=== PATIENT | male | born 1960 | race Caucasian/White ===

== ENCOUNTER 2016-07-31 16:07 | Inpatient (IN) | payer OTHER, BC ==
[~2016-07-31] VITALS: Ht 185.4 cm; Wt 122.1 kg
[~2016-07-31 16:07] MED LIST: ALTOPREV20 MG PO; AMIODARONE HCL200 MG PO; ASACOL400 MG PO; ASPIR-LOW81 MG PO; ASPIRIN325 MG PO; ATORVASTATIN CA40 MG PO; AZATHIOPRINE50 MG PO; Advair HFA 115/21 IH; BYSTOLIC10 MG PO; CLOPIDOGREL75 MG PO; Ecotrin PO; GEMFIBROZIL600 MG PO; GLUCOVANCE 51 TABLET PO; INSULIN PUMP SCCONT; KEFLEX500 MG PO; LANTUS 10100 UNITS/ SC; LANTUS 3 M100 UNITS/ SC; LIALDA1.2 GM PO; LOVASTATIN20 MG PO; LYRICA150 MG PO; Lopid PO; METAGLIP 5/51 TABLET PO; METFORMIN HCL500 MG PO; METOPROLOL SUCC25 MG PO; Mevacor PO; PROBIOTIC1 EAC1 PO; SPIRIVA1 INHALATI IH; TIMOLOL MALEATE5 ML BOTH EYES; TIMOPTIC-0100 DROP/5 BOTH EYES; TOPROL XL50 MG PO; Zithromax PO; predniSONE PO
[2016-07-31 17:10] LABS: HEMATOCRIT 38.2 % (38.0-50.0); MCH 32.7 PG (29.0-34.0); MCHC 35.3 G/DL (30.0-36.0); MCV 92.5 FL (86-99); MEAN PLAT.VOLUME 9.4 uM^3 (9.0-12.4); PLATELET COUNT 148 K/uL (156-360); RBC DIS.WIDTH-CV 13.4 % (11.8-14.6); RBC DIS.WIDTH-SD 45.5 % (39-53); RED BLOOD COUNT 4.13 M/uL (4.00-5.50); WHITE BLOOD COUNT 8.5 K/uL (4.1-10.2)
[2016-07-31 17:20] LABS: CHLORIDE 96 mEq/L (99-109); POTASSIUM 4.1 mEq/L (3.7-5.4); SODIUM 129 mEq/L (136-147)
[2016-07-31 17:22] LABS: GLUCOSE 287 mg/dL (70-99)
[2016-07-31 17:24] LABS: ANION GAP 16 MEQ/L (2-14); INTER. NORMALIZED RATIO 1.2; PROTHROMBIN TIME 11.9 (9.2-11.2); PTT 31.5 (25-32)
[2016-07-31 17:26] LABS: GFR ESTIMATE (CALCULATED) 48 mL/min/
[2016-07-31 17:27] LABS: UREA NITROGEN (BUN) 21 mg/dL (9-23)
[2016-07-31] MEDS ORDERED: ATORVASTATIN CA40 MG PO (18:19)
[2016-07-31] MEDS ORDERED: PLAVIX75 MG PO (18:19)
[2016-07-31] MEDS ORDERED: METOPROLOL TART50 MG PO (18:20)
[2016-07-31] MEDS ORDERED: AZATHIOPRINE50 MG PO (18:21)
[2016-07-31] MEDS ORDERED: MELOXICAM15 MG PO (18:22)
[2016-07-31] MEDS ORDERED: TYLENOL ARTHRI650 MG PO (18:22)
[2016-07-31] MEDS ORDERED: CYMBALTA60 MG PO (18:22)
[2016-07-31 21:00] VITALS: BP 103/58
[2016-07-31 21:12] VITALS: BP 103/58
[2016-07-31 23:28] VITALS: BP 116/56
[2016-08-01 04:09] VITALS: BP 118/56
[2016-08-01 06:57] LABS: POINT-OF-CARE METER ID UU14149397
[2016-08-01 08:03] VITALS: BP 124/68
[2016-08-01 11:35] VITALS: BP 126/58
[2016-08-01 12:36] LABS: ANION GAP 10 MEQ/L (2-14); CHLORIDE 106 MEQ/L (99-109); GLUCOSE 208 mg/dL (70-99); POTASSIUM 4.3 MEQ/L (3.7-5.4); SAMPLE HEMOLYSIS CHECK 0; SAMPLE ICTERIC CHECK 0; SAMPLE LIPEMIA CHECK 0; UREA NITROGEN (BUN) 16 mg/dL (9-23)
[2016-08-01 12:44] LABS: GFR ESTIMATE (CALCULATED) > 59 mL/min/; SODIUM 138 MEQ/L (136-147)
[2016-08-01 15:36] VITALS: BP 122/60
[2016-08-01 20:15] VITALS: BP 151/80
[2016-08-01 23:33] VITALS: BP 113/56
[2016-08-02 03:56] VITALS: BP 127/60
[2016-08-02 06:59] LABS: POINT-OF-CARE METER ID UU14188577
[2016-08-02 08:15] VITALS: BP 112/54
[2016-08-02 09:03] LABS: GLUCOSE 142 mg/dL (70-99)
[2016-08-02 11:31] VITALS: BP 128/60
[2016-08-02 11:36] LABS: POINT-OF-CARE METER ID UU14149397
[2016-08-02 14:58] LABS: POINT-OF-CARE METER ID UU13113675
[2016-08-02 15:55] LABS: POINT-OF-CARE METER ID UU13113675
[2016-08-02 16:38] VITALS: BP 124/68
[2016-08-02 18:38] LABS: POINT-OF-CARE METER ID UU14149397
[2016-08-02 19:55] VITALS: BP 140/67
[2016-08-02 22:24] LABS: POINT-OF-CARE METER ID UU14149397
[2016-08-02 23:55] VITALS: BP 130/63
[2016-08-03 06:35] LABS: HEMATOCRIT 30.9 % (38.0-50.0); MCV 95.1 FL (86-99)
[2016-08-03 06:38] LABS: ANION GAP 10 MEQ/L (2-14); CHLORIDE 102 MEQ/L (99-109); GFR ESTIMATE (CALCULATED) > 59 mL/min/; SAMPLE HEMOLYSIS CHECK 0; SAMPLE ICTERIC CHECK 0; SAMPLE LIPEMIA CHECK 0; SODIUM 135 MEQ/L (136-147); UREA NITROGEN (BUN) 17 mg/dL (9-23)
[2016-08-03 06:42] LABS: GLUCOSE 62 mg/dL (70-99); POTASSIUM 3.4 MEQ/L (3.7-5.4)
[2016-08-03 08:00] VITALS: BP 132/62
[2016-08-03 11:54] LABS: POINT-OF-CARE METER ID UU14188577
[2016-08-03 12:40] LABS: POINT-OF-CARE METER ID UU14188577
[2016-08-03 16:00] VITALS: BP 133/63
[2016-08-03 16:30] LABS: POINT-OF-CARE METER ID UU14188577
[2016-08-03 21:51] LABS: POINT-OF-CARE METER ID UU14149397
[2016-08-03 23:56] VITALS: BP 170/84
[2016-08-04 06:36] LABS: POINT-OF-CARE METER ID UU14188577
[2016-08-04 06:49] LABS: HEMATOCRIT 29.5 % (38.0-50.0); MCH 32.6 PG (29.0-34.0); MCHC 34.2 G/DL (30.0-36.0); MCV 95.2 FL (86-99); MEAN PLAT.VOLUME 9.4 uM^3 (9.0-12.4); PLATELET COUNT 180 K/uL (156-360); RBC DIS.WIDTH-SD 48.2 % (39-53); WHITE BLOOD COUNT 7.2 K/uL (4.1-10.2)
[2016-08-04 07:16] LABS: ANION GAP 9 MEQ/L (2-14); CHLORIDE 103 MEQ/L (99-109); GFR ESTIMATE (CALCULATED) > 59 mL/min/; SAMPLE HEMOLYSIS CHECK 0; SAMPLE ICTERIC CHECK 0; SAMPLE LIPEMIA CHECK 0; SODIUM 138 MEQ/L (136-147); UREA NITROGEN (BUN) 13 mg/dL (9-23)
[2016-08-04 07:17] LABS: GLUCOSE 188 mg/dL (70-99)
[2016-08-04 07:18] LABS: POTASSIUM 4.2 MEQ/L (3.7-5.4)
[2016-08-04 08:18] VITALS: BP 150/66
[2016-08-04 08:19] LABS: ERTH.SED.RATE 92 MM/HR (0-20)
[2016-08-04 11:44] LABS: POINT-OF-CARE METER ID UU14188577
[2016-08-04 16:02] VITALS: BP 147/83
[2016-08-04 16:21] LABS: POINT-OF-CARE METER ID UU14149397
[2016-08-05 06:49] LABS: POINT-OF-CARE METER ID UU14188577
[2016-08-05 08:23] VITALS: BP 126/72
[2016-08-05] MEDS ORDERED: BENADRYL25 MG PO (08:44)
[2016-08-05] MEDS ORDERED: OXYCODONE HCL5 MG PO (08:51)
[2016-08-05] MEDS ORDERED: LOVENOX40 MG/0.4 SC (10:06)
[2016-08-05 12:02] LABS: POINT-OF-CARE METER ID UU14188577
[2016-08-05 16:20] VITALS: BP 173/82
[2016-08-05 23:45] VITALS: BP 141/65
[2016-08-06 06:50] LABS: POINT-OF-CARE METER ID UU14149397
[2016-08-06 08:00] VITALS: BP 112/60
[2016-08-06] MEDS ORDERED: AUGMENTIN875 MG PO (08:55)
[2016-08-06 16:43] VITALS: BP 149/83
[2016-08-06 16:47] LABS: POINT-OF-CARE METER ID UU14188577
[2016-08-06 23:36] VITALS: BP 120/58
[2016-08-07 11:51] VITALS: BP 132/61
[2016-08-07] MEDS ORDERED: XARELTO15 MG PO (13:04)
== END 2016-08-07 15:15 | disposition home health service (06) | DRG 463 ==
LOC: EME 16:07 → EDOF 18:00 → 3EAST 18:00
PROVIDERS: Emergency Medicine; Internal Medicine; Nurse Practitioner Family; Orthopaedic Surgery; Orthopaedic Surgery Sports Medicine
PROC: 0M9N0ZZ Drainage of Right Knee Bursa and Ligament, Open Approach (ICD-10-PCS; 2016-07-31)
PROC: 0JBN0ZZ Excision of Right Lower Leg Subcutaneous Tissue and Fascia, Open Approach (ICD-10-PCS; principal; 2016-08-02)
PROC: 0S9C0ZZ Drainage of Right Knee Joint, Open Approach (ICD-10-PCS; 2016-08-04)
DX: M71.161 Other infective bursitis, right knee (principal); A41.9 Sepsis, unspecified organism; R65.20 Severe sepsis without septic shock; L03.115 Cellulitis of right lower limb; E87.1 Hypo-osmolality and hyponatremia; K51.90 Ulcerative colitis, unspecified, without complications; I82.411 Acute embolism and thrombosis of right femoral vein; E87.6 Hypokalemia; E78.2 Mixed hyperlipidemia; B95.4 Other streptococcus as the cause of diseases classified elsewhere; D69.6 Thrombocytopenia, unspecified; E11.65 Type 2 diabetes mellitus with hyperglycemia; M71.21 Synovial cyst of popliteal space [Baker], right knee; I25.10 Atherosclerotic heart disease of native coronary artery without angina pectoris; E11.649 Type 2 diabetes mellitus with hypoglycemia without coma; I10 Essential (primary) hypertension; E66.9 Obesity, unspecified; Z96.41 Presence of insulin pump (external) (internal); E78.00 Pure hypercholesterolemia, unspecified; Z95.5 Presence of coronary angioplasty implant and graft; Z68.35 Body mass index [BMI] 35.0-35.9, adult; Z79.4 Long term (current) use of insulin; Z79.84 Long term (current) use of oral hypoglycemic drugs; Z98.62 Peripheral vascular angioplasty status; I25.2 Old myocardial infarction; Z87.891 Personal history of nicotine dependence; Z82.49 Family history of ischemic heart disease and other diseases of the circulatory system; Z83.3 Family history of diabetes mellitus; Z86.718 Personal history of other venous thrombosis and embolism
CPT/HCPCS: 70140; 73720; 80048; 80202; 82948; 83605; 84999; 85014; 85018; 85027; 85610; 85651; 85730; 86140; 87040; 87070; 87075; 87077; 87102; 87205; 93005; 93971; 94760; 94799; 99281; 99285; J0295; J0690; J0696; J1170; J1650; J1815; J1885; J2270; J2405; J3010; J3370; J7030; J7050; J7500

== ENCOUNTER 2016-09-12 12:31 | Inpatient (IN) | payer OTHER, BC ==
[~2016-09-12] VITALS: Ht 185.4 cm; Wt 114.3 kg
[~2016-09-12 12:31] MED LIST changes: +AUGMENTIN875 MG PO; +BENADRYL25 MG PO; +CYMBALTA60 MG PO; +LOVENOX40 MG/0.4 SC; +MELOXICAM15 MG PO; +METOPROLOL TART50 MG PO; +OXYCODONE HCL5 MG PO; +PLAVIX75 MG PO; +TYLENOL ARTHRI650 MG PO; +XARELTO15 MG PO
[2016-09-12 14:09] LABS: EOSINOPHIL (%) 0 % (0-5); HEMATOCRIT 33.7 % (38.0-50.0); IMMATURE GRANULOCYTE (%) 0.4 % (0.0-0.7); INSTRUMENT ABS NEUTROPHIL CT 6.1 K/uL; LYMPHOCYTE COUNT 0.5 K/uL (1.0-2.8); MCH 33.7 PG (29.0-34.0); MCHC 34.4 G/DL (30.0-36.0); MEAN PLAT.VOLUME 9.2 uM^3 (9.0-12.4); MONOCYTE (%) 4.6 % (3-12); MONOCYTE COUNT 0.3 K/uL (0-0.8); NEUTROPHIL (%) 88.2 % (45-76); NEUTROPHIL COUNT 6.1 K/uL (1.8-6.4); RBC DIS.WIDTH-CV 14.9 % (11.8-14.6); RBC DIS.WIDTH-SD 53.5 % (39-53); RED BLOOD COUNT 3.44 M/uL (4.00-5.50)
[2016-09-12 14:12] LABS: PLATELET COUNT 133 K/uL (156-360); WHITE BLOOD COUNT 6.9 K/uL (4.1-10.2)
[2016-09-12 14:20] LABS: CHLORIDE 101 mEq/L (99-109); POTASSIUM 4.2 mEq/L (3.7-5.4); SODIUM 133 mEq/L (136-147)
[2016-09-12 14:22] LABS: GLUCOSE 271 mg/dL (70-99)
[2016-09-12 14:23] LABS: ANION GAP 10 MEQ/L (2-14)
[2016-09-12 14:26] LABS: GFR ESTIMATE (CALCULATED) 51 mL/min/
[2016-09-12 14:27] LABS: UREA NITROGEN (BUN) 23 mg/dL (9-23)
[2016-09-12] MEDS ORDERED: XARELTO20 MG PO (17:08)
[2016-09-12] MEDS ORDERED: MECLIZINE HCL25 MG PO (17:11)
[2016-09-12] MEDS ORDERED: FISH OIL300 MG PO ×2 (17:12)
[2016-09-12 20:35] VITALS: BP 144/64
[2016-09-12 21:56] LABS: POINT-OF-CARE METER ID UU14162508
[2016-09-13 00:31] VITALS: BP 137/65
[2016-09-13 04:24] VITALS: BP 129/67
[2016-09-13 06:38] LABS: HEMATOCRIT 31.1 % (38.0-50.0); MCH 33.1 PG (29.0-34.0); MCHC 33.8 G/DL (30.0-36.0); MCV 98.1 FL (86-99); MEAN PLAT.VOLUME 9.7 uM^3 (9.0-12.4); PLATELET COUNT 119 K/uL (156-360); RBC DIS.WIDTH-CV 14.9 % (11.8-14.6); RBC DIS.WIDTH-SD 53.3 % (39-53); RED BLOOD COUNT 3.17 M/uL (4.00-5.50); WHITE BLOOD COUNT 4.9 K/uL (4.1-10.2)
[2016-09-13 07:00] VITALS: BP 111/59
[2016-09-13 07:00] LABS: ALKALINE PHOSPHATASE 66 IU/L (3-129); ANION GAP 8 MEQ/L (2-14); CHLORIDE 102 MEQ/L (99-109); GFR ESTIMATE (CALCULATED) > 59 mL/min/; GLUCOSE 226 mg/dL (70-99); POTASSIUM 3.9 MEQ/L (3.7-5.4); SAMPLE HEMOLYSIS CHECK 0; SAMPLE ICTERIC CHECK 0; SAMPLE LIPEMIA CHECK 0; SODIUM 133 MEQ/L (136-147); TOTAL BILIRUBIN 1.2 MG/DL (0.0-1.0); UREA NITROGEN (BUN) 18 mg/dL (9-23)
[2016-09-13 07:07] LABS: POINT-OF-CARE METER ID UU14162508
[2016-09-13 11:56] VITALS: BP 108/58
[2016-09-13 15:23] VITALS: BP 117/67
[2016-09-13 16:54] LABS: POINT-OF-CARE METER ID UU14162508
[2016-09-13 21:29] LABS: POINT-OF-CARE METER ID UU14162508
[2016-09-13 23:33] VITALS: BP 117/60
[2016-09-14 06:45] LABS: POINT-OF-CARE METER ID UU14162508
[2016-09-14 06:54] LABS: HEMATOCRIT 31.4 % (38.0-50.0); MCH 34.2 PG (29.0-34.0); MCHC 34.7 G/DL (30.0-36.0); MCV 98.4 FL (86-99); MEAN PLAT.VOLUME 9.6 uM^3 (9.0-12.4); PLATELET COUNT 129 K/uL (156-360); RBC DIS.WIDTH-CV 14.7 % (11.8-14.6); RBC DIS.WIDTH-SD 53.4 % (39-53); RED BLOOD COUNT 3.19 M/uL (4.00-5.50); WHITE BLOOD COUNT 3.9 K/uL (4.1-10.2)
[2016-09-14 07:15] VITALS: BP 114/66
[2016-09-14 07:34] LABS: ANION GAP 5 MEQ/L (2-14); CHLORIDE 101 MEQ/L (99-109); GFR ESTIMATE (CALCULATED) > 59 mL/min/; GLUCOSE 181 mg/dL (70-99); POTASSIUM 4.5 MEQ/L (3.7-5.4); SAMPLE HEMOLYSIS CHECK 0; SAMPLE ICTERIC CHECK 0; SAMPLE LIPEMIA CHECK 0; SODIUM 131 MEQ/L (136-147); UREA NITROGEN (BUN) 19 mg/dL (9-23)
[2016-09-14 15:35] VITALS: BP 120/66
[2016-09-14 19:45] VITALS: BP 131/67
[2016-09-14 21:56] LABS: POINT-OF-CARE METER ID UU14162508
[2016-09-14 23:43] VITALS: BP 131/75
[2016-09-15 03:31] VITALS: BP 144/63
[2016-09-15 06:49] LABS: HEMATOCRIT 35.5 % (38.0-50.0); MCH 33.3 PG (29.0-34.0); MCHC 34.6 G/DL (30.0-36.0); MCV 96.2 FL (86-99); MEAN PLAT.VOLUME 9.7 uM^3 (9.0-12.4); RBC DIS.WIDTH-CV 14.2 % (11.8-14.6); RBC DIS.WIDTH-SD 50.6 % (39-53); RED BLOOD COUNT 3.69 M/uL (4.00-5.50); WHITE BLOOD COUNT 4.8 K/uL (4.1-10.2)
[2016-09-15 06:50] LABS: PLATELET COUNT 172 K/uL (156-360)
[2016-09-15 07:03] LABS: ANION GAP 8 MEQ/L (2-14); CHLORIDE 102 MEQ/L (99-109); GFR ESTIMATE (CALCULATED) > 59 mL/min/; GLUCOSE 212 mg/dL (70-99); POTASSIUM 4.4 MEQ/L (3.7-5.4); SAMPLE HEMOLYSIS CHECK 0; SAMPLE ICTERIC CHECK 0; SAMPLE LIPEMIA CHECK 0; SODIUM 136 MEQ/L (136-147); UREA NITROGEN (BUN) 18 mg/dL (9-23)
[2016-09-15 08:00] VITALS: BP 140/73
[2016-09-15 11:57] LABS: POINT-OF-CARE METER ID UU14162508
[2016-09-15 16:00] VITALS: BP 140/74
[2016-09-15] MEDS ORDERED: KEFLEX500 MG PO (17:02)
== END 2016-09-15 18:03 | disposition home or self-care (01) | DRG 603 ==
LOC: EME 12:31 → 2EAST 18:57 → EDOF 18:57 → 2EAST 19:53
PROVIDERS: Emergency Medicine; Internal Medicine
DX: L03.115 Cellulitis of right lower limb (principal); E11.42 Type 2 diabetes mellitus with diabetic polyneuropathy; Z79.4 Long term (current) use of insulin; I25.10 Atherosclerotic heart disease of native coronary artery without angina pectoris; Z86.718 Personal history of other venous thrombosis and embolism; Z79.01 Long term (current) use of anticoagulants; K51.90 Ulcerative colitis, unspecified, without complications; S80.811S Abrasion, right lower leg, sequela; X58.XXXS Exposure to other specified factors, sequela; I10 Essential (primary) hypertension; E78.5 Hyperlipidemia, unspecified; Z95.1 Presence of aortocoronary bypass graft; B95.4 Other streptococcus as the cause of diseases classified elsewhere; Z79.82 Long term (current) use of aspirin
CPT/HCPCS: 73560; 73630; 80048; 80053; 80202; 82948; 85025; 85027; 87040; 93971; 99281; 99285; J0690; J0744; J1815; J2543; J3370; J7030; J7050; J7500

== ENCOUNTER 2017-04-17 08:04 | Day surgery (SDC) | payer BC ==
[~2017-04-17] VITALS: Ht 182.9 cm; Wt 124.7 kg
[~2017-04-17 08:04] MED LIST changes: +CLEOCIN150 MG PO; +DULOXETINE HCL40 MG PO; +FISH OIL300 MG PO; +MECLIZINE HCL25 MG PO; +XARELTO20 MG PO
[2017-04-17 08:49] LABS: POINT-OF-CARE METER ID UU14174212
[2017-04-17 09:28] VITALS: BP 139/71
[2017-04-17 09:51] LABS: METH RESISTANT S AUREUS PCR NEGATIVE (NEGATIVE)
[2017-04-17 09:53] LABS: PROBE CHECK PASS; SPECIMEN PROCESSING CONTROL PASS
== END 2017-04-17 10:15 | disposition home or self-care (01) ==
LOC: SDC 08:04
PROVIDERS: Podiatrist Foot & Ankle Surgery
DX: M77.31 Calcaneal spur, right foot (principal); Z79.01 Long term (current) use of anticoagulants; Z53.09 Procedure and treatment not carried out because of other contraindication
CPT/HCPCS: 82948; 87641; J0690

== ENCOUNTER 2017-04-28 10:57 | Day surgery (SDC) | payer BC ==
[~2017-04-28] VITALS: Ht 185.4 cm; Wt 118.4 kg
[2017-04-28 11:37] VITALS: BP 133/79
[2017-04-28 12:27] LABS: POINT-OF-CARE METER ID UU14174212
[2017-04-28 13:45] LABS: METH RESISTANT S AUREUS PCR NEGATIVE (NEGATIVE); PROBE CHECK PASS; SPECIMEN PROCESSING CONTROL PASS
[2017-04-28 15:19] LABS: POINT-OF-CARE METER ID UU13113675
[2017-04-28 15:57] VITALS: BP 158/78
[2017-04-28 16:50] VITALS: BP 162/80
== END 2017-04-28 16:58 | disposition home or self-care (01) ==
LOC: SDC 10:57
PROVIDERS: Podiatrist Foot & Ankle Surgery
PROC: 0QBN0ZZ Excision of Right Metatarsal, Open Approach (ICD-10-PCS; principal; 2017-04-28)
DX: E11.621 Type 2 diabetes mellitus with foot ulcer (principal); L97.518 Non-pressure chronic ulcer of other part of right foot with other specified severity; E11.40 Type 2 diabetes mellitus with diabetic neuropathy, unspecified; L60.3 Nail dystrophy; B35.1 Tinea unguium; M25.871 Other specified joint disorders, right ankle and foot; M20.41 Other hammer toe(s) (acquired), right foot; L84 Corns and callosities; J44.9 Chronic obstructive pulmonary disease, unspecified; I10 Essential (primary) hypertension; K21.9 Gastro-esophageal reflux disease without esophagitis; I25.2 Old myocardial infarction; Z95.5 Presence of coronary angioplasty implant and graft
CPT/HCPCS: 82948; 87641; J0690; J2250; J2405; J3010; S0020

== ENCOUNTER 2017-05-07 08:54 | Inpatient (IN) | payer BC ==
[~2017-05-07] VITALS: Ht 185.4 cm; Wt 116.6 kg
[~2017-05-07 08:54] MED LIST changes: -DULOXETINE HCL40 MG PO; +DULOXETINE HCL60 MG PO; +FISH OIL 1,2001 EAC4 PO
[2017-05-07 10:21] LABS: CARBON DIOXIDE (BICARBONATE) 18.1 MEQ/L (20-31)
[2017-05-07 10:22] LABS: BASOPHIL (%) 0.3 % (0-1); EOSINOPHIL (%) 0.8 % (0-5); EOSINOPHIL COUNT 0.1 K/uL (0-0.3); HEMATOCRIT 33.7 % (38.0-50.0); HEMOGLOBIN 11.5 G/DL (12.5-16.6); IMMATURE GRANULOCYTE (%) 0.3 % (0.0-0.7); LYMPHOCYTE (%) 7.7 % (15-42); LYMPHOCYTE COUNT 0.6 K/uL (1.0-2.8); MCH 32.1 PG (29.0-34.0); MCHC 34.1 G/DL (30.0-36.0); MCV 94.1 FL (86-99); MONOCYTE (%) 8.4 % (3-12); MONOCYTE COUNT 0.6 K/uL (0-0.8); NEUTROPHIL (%) 82.5 % (45-76); NEUTROPHIL COUNT 5.9 K/uL (1.8-6.4); PLATELET COUNT 207 K/uL (156-360); RBC DIS.WIDTH-CV 12.7 % (11.8-14.6); RBC DIS.WIDTH-SD 44.2 % (39-53); RED BLOOD COUNT 3.58 M/uL (4.00-5.50); WHITE BLOOD COUNT 7.1 K/uL (4.1-10.2)
[2017-05-07 10:27] LABS: INTER. NORMALIZED RATIO 1.4
[2017-05-07 10:29] LABS: PTT 26.6 SEC (25-37)
[2017-05-07 10:34] LABS: ALBUMIN 3.3 g/dL (3.2-4.8); CHLORIDE 97 mEq/L (99-109); POTASSIUM 5.7 mEq/L (3.7-5.4); SODIUM 128 mEq/L (136-147)
[2017-05-07 10:36] LABS: TOTAL PROTEIN 7.8 g/dL (6.4-8.3)
[2017-05-07 10:38] LABS: TOTAL BILIRUBIN 1.1 mg/dL (0.0-1.0)
[2017-05-07 10:40] LABS: ALKALINE PHOSPHATASE 87 IU/L (3-129); CREATININE 1.8 mg/dL (0.6-1.3); GFR ESTIMATE (CALCULATED) 42 mL/min/ (58.99-99999)
[2017-05-07 10:41] LABS: AST (GOT) 12 IU/L (2-34); UREA NITROGEN (BUN) 29 mg/dL (9-23)
[2017-05-07 10:42] LABS: DIRECT BILIRUBIN 0.5 mg/dL (0.0-0.3)
[2017-05-07 10:42] LABS: TROP-I INTERPRETATION NEGATIVE; TROPONIN-I < 0.01 ng/mL (0.0-0.30)
[2017-05-07 10:43] LABS: ALT (GPT) 9 IU/L (3-49); LIPASE 13 U/L (1.0-51.0)
[2017-05-07 10:52] LABS: GLUCOSE 406 mg/dL (70-99)
[2017-05-07 11:29] LABS: APPEARANCE CLEAR ((CLEAR)); BILIRUBIN NEGATIVE; BLOOD SMALL; COLOR YELLOW ((YELLOW)); GLUCOSE (STRIP) >=500; KETONES 20; LEUKOCYTES NEGATIVE; NITRITE NEGATIVE; PROTEIN (STRIP) 100; SPECIFIC GRAVITY 1.023 (1.000-1.030); UROBILINOGEN 0.2 MG/DL (0.2-1.0)
[2017-05-07 11:31] LABS: BACTERIA NONE SEEN /HPF; EPITHELIAL CELLS RARE /HPF; HYALINE CASTS 0-5 /LPF; MUCUS TRACE /LPF; RED BLOOD CELLS 0-5 /HPF (0-5); UCUL ADDED? NO; WHITE BLOOD CELLS 0-5 /HPF (0-5)
[2017-05-07] MEDS ORDERED: BACTRIM,SEPT1 TABLET PO (13:29)
[2017-05-07] MEDS ORDERED: CIPROFLOXACIN750 MG PO (13:29)
[2017-05-07] MEDS ORDERED: RAMIPRIL10 MG PO (13:30)
[2017-05-07] MEDS ORDERED: ENDOCET 5-3251 EACH PO (13:30)
[2017-05-07] MEDS ORDERED: DICLOFENAC SOD100 MG PO (13:30)
[2017-05-07 15:27] VITALS: BP 191/88
[2017-05-07 19:44] VITALS: BP 135/63
[2017-05-08 00:01] VITALS: BP 117/56
[2017-05-08 03:43] VITALS: BP 108/55
[2017-05-08 06:42] LABS: HEMATOCRIT 29.9 % (38.0-50.0); HEMOGLOBIN 9.9 G/DL (12.5-16.6); MCH 31.6 PG (29.0-34.0); MCHC 33.1 G/DL (30.0-36.0); MCV 95.5 FL (86-99); PLATELET COUNT 153 K/uL (156-360); RBC DIS.WIDTH-CV 12.7 % (11.8-14.6); RBC DIS.WIDTH-SD 44.4 % (39-53); RED BLOOD COUNT 3.13 M/uL (4.00-5.50); WHITE BLOOD COUNT 5.3 K/uL (4.1-10.2)
[2017-05-08 07:06] LABS: CHLORIDE 104 MEQ/L (99-109); UREA NITROGEN (BUN) 18 mg/dL (9-23)
[2017-05-08 07:07] LABS: CREATININE 1.1 MG/DL (0.6-1.3); GFR ESTIMATE (CALCULATED) > 59 mL/min/ (58.99-99999); GLUCOSE 153 mg/dL (70-99); POTASSIUM 4.2 MEQ/L (3.7-5.4); SODIUM 137 MEQ/L (136-147)
[2017-05-08 07:41] VITALS: BP 125/68
[2017-05-08 11:12] VITALS: BP 130/67
[2017-05-08 16:34] VITALS: BP 138/70
[2017-05-08 20:15] VITALS: BP 148/77
[2017-05-09] VITALS (7 sets, daily range): BP systolic 115–144; BP diastolic 56–72
[2017-05-09 07:03] LABS: ALBUMIN 2.9 G/DL (3.2-4.8); ALKALINE PHOSPHATASE 74 IU/L (3-129); ALT (GPT) 7 IU/L (3-49); AST (GOT) 10 IU/L (2-34); CHLORIDE 102 MEQ/L (99-109); GFR ESTIMATE (CALCULATED) > 59 mL/min/ (58.99-99999); GLUCOSE 154 mg/dL (70-99); POTASSIUM 4.1 MEQ/L (3.7-5.4); SODIUM 135 MEQ/L (136-147); TOTAL BILIRUBIN 0.5 MG/DL (0.0-1.0); TOTAL PROTEIN 5.7 G/DL (6.4-8.3); UREA NITROGEN (BUN) 16 mg/dL (9-23)
[2017-05-09 07:11] LABS: HEMATOCRIT 29.4 % (38.0-50.0); HEMOGLOBIN 10.3 G/DL (12.5-16.6); MCH 33.2 PG (29.0-34.0); MCV 94.8 FL (86-99); RBC DIS.WIDTH-CV 12.5 % (11.8-14.6); RBC DIS.WIDTH-SD 43.8 % (39-53); WHITE BLOOD COUNT 5.8 K/uL (4.1-10.2)
[2017-05-09 07:25] LABS: PLATELET COUNT 224 K/uL (156-360)
[2017-05-10 03:31] VITALS: BP 140/66
[2017-05-10 06:24] LABS: HEMATOCRIT 31.3 % (38.0-50.0); HEMOGLOBIN 10.8 G/DL (12.5-16.6); MCH 32.4 PG (29.0-34.0); MCHC 34.5 G/DL (30.0-36.0); PLATELET COUNT 201 K/uL (156-360); RBC DIS.WIDTH-CV 12.3 % (11.8-14.6); RBC DIS.WIDTH-SD 42.1 % (39-53); RED BLOOD COUNT 3.33 M/uL (4.00-5.50); WHITE BLOOD COUNT 7.2 K/uL (4.1-10.2)
[2017-05-10 06:57] LABS: ALBUMIN 3.1 G/DL (3.2-4.8); ALKALINE PHOSPHATASE 73 IU/L (3-129); ALT (GPT) 7 IU/L (3-49); AST (GOT) 10 IU/L (2-34); CHLORIDE 100 MEQ/L (99-109); CREATININE 1.2 MG/DL (0.6-1.3); GFR ESTIMATE (CALCULATED) > 59 mL/min/ (58.99-99999); GLUCOSE 193 mg/dL (70-99); POTASSIUM 4.1 MEQ/L (3.7-5.4); SODIUM 134 MEQ/L (136-147); TOTAL BILIRUBIN 0.5 MG/DL (0.0-1.0); UREA NITROGEN (BUN) 19 mg/dL (9-23)
[2017-05-10 06:59] LABS: TOTAL PROTEIN 6.9 G/DL (6.4-8.3)
[2017-05-10 07:32] VITALS: BP 121/68
[2017-05-10 17:00] VITALS: BP 124/66
[2017-05-10 20:15] VITALS: BP 149/71
[2017-05-11 01:52] VITALS: BP 116/66
[2017-05-11 06:36] LABS: HEMATOCRIT 31.2 % (38.0-50.0); HEMOGLOBIN 10.6 G/DL (12.5-16.6); MCH 31.8 PG (29.0-34.0); MCV 93.7 FL (86-99); PLATELET COUNT 240 K/uL (156-360); RBC DIS.WIDTH-CV 12.3 % (11.8-14.6); RBC DIS.WIDTH-SD 42.4 % (39-53); RED BLOOD COUNT 3.33 M/uL (4.00-5.50); WHITE BLOOD COUNT 7.1 K/uL (4.1-10.2)
[2017-05-11 06:59] LABS: ALBUMIN 3.2 G/DL (3.2-4.8); ALKALINE PHOSPHATASE 72 IU/L (3-129); ALT (GPT) 6 IU/L (3-49); AST (GOT) 10 IU/L (2-34); CHLORIDE 98 MEQ/L (99-109); CREATININE 1.2 MG/DL (0.6-1.3); GFR ESTIMATE (CALCULATED) > 59 mL/min/ (58.99-99999); GLUCOSE 195 mg/dL (70-99); POTASSIUM 4.3 MEQ/L (3.7-5.4); SODIUM 130 MEQ/L (136-147); TOTAL BILIRUBIN 0.5 MG/DL (0.0-1.0); TOTAL PROTEIN 6.9 G/DL (6.4-8.3); UREA NITROGEN (BUN) 21 mg/dL (9-23)
[2017-05-11 08:00] VITALS: BP 102/61
[2017-05-11 16:00] VITALS: BP 134/74
[2017-05-11 23:52] VITALS: BP 124/62
[2017-05-12 06:45] LABS: HEMATOCRIT 33.1 % (38.0-50.0); HEMOGLOBIN 11.2 G/DL (12.5-16.6); MCH 31.5 PG (29.0-34.0); MCHC 33.8 G/DL (30.0-36.0); PLATELET COUNT 289 K/uL (156-360); RBC DIS.WIDTH-CV 12.1 % (11.8-14.6); RBC DIS.WIDTH-SD 41.8 % (39-53); RED BLOOD COUNT 3.56 M/uL (4.00-5.50); WHITE BLOOD COUNT 7.1 K/uL (4.1-10.2)
[2017-05-12 07:12] LABS: C-REACTIVE PROTEIN 82.1 MG/L (0-10); CHLORIDE 101 MEQ/L (99-109); CREATININE 1.3 MG/DL (0.6-1.3); GFR ESTIMATE (CALCULATED) > 59 mL/min/ (58.99-99999); GLUCOSE 146 mg/dL (70-99); POTASSIUM 4.7 MEQ/L (3.7-5.4); SODIUM 136 MEQ/L (136-147); UREA NITROGEN (BUN) 20 mg/dL (9-23)
[2017-05-12 07:57] VITALS: BP 111/60
[2017-05-12 08:04] LABS: ERTH.SED.RATE 71 MM/HR (0-20)
[2017-05-12 16:00] VITALS: BP 132/69
[2017-05-13 00:24] VITALS: BP 108/58
[2017-05-13 06:55] LABS: HEMATOCRIT 33.1 % (38.0-50.0); HEMOGLOBIN 11.3 G/DL (12.5-16.6); MCH 31.8 PG (29.0-34.0); MCHC 34.1 G/DL (30.0-36.0); MCV 93.2 FL (86-99); PLATELET COUNT 264 K/uL (156-360); RBC DIS.WIDTH-CV 12.1 % (11.8-14.6); RBC DIS.WIDTH-SD 41.7 % (39-53); RED BLOOD COUNT 3.55 M/uL (4.00-5.50); WHITE BLOOD COUNT 4.9 K/uL (4.1-10.2)
[2017-05-13 07:13] LABS: CHLORIDE 97 MEQ/L (99-109); CREATININE 1.3 MG/DL (0.6-1.3); GFR ESTIMATE (CALCULATED) > 59 mL/min/ (58.99-99999); POTASSIUM 5.1 MEQ/L (3.7-5.4); SODIUM 133 MEQ/L (136-147); UREA NITROGEN (BUN) 24 mg/dL (9-23)
[2017-05-13 07:15] LABS: GLUCOSE 224 mg/dL (70-99)
[2017-05-13 07:37] VITALS: BP 114/61
[2017-05-13 16:03] VITALS: BP 146/80
[2017-05-14] VITALS: BP 93/59
[2017-05-14 07:39] LABS: HEMATOCRIT 33.1 % (38.0-50.0); HEMOGLOBIN 11.1 G/DL (12.5-16.6); MCH 31.6 PG (29.0-34.0); MCHC 33.5 G/DL (30.0-36.0); MCV 94.3 FL (86-99); PLATELET COUNT 270 K/uL (156-360); RBC DIS.WIDTH-CV 12.6 % (11.8-14.6); RBC DIS.WIDTH-SD 42.9 % (39-53); RED BLOOD COUNT 3.51 M/uL (4.00-5.50); WHITE BLOOD COUNT 5.1 K/uL (4.1-10.2)
[2017-05-14 08:00] VITALS: BP 122/70
[2017-05-14 08:02] LABS: ALBUMIN 3.3 G/DL (3.2-4.8); ALKALINE PHOSPHATASE 84 IU/L (3-129); ALT (GPT) 6 IU/L (3-49); CHLORIDE 101 MEQ/L (99-109); CREATININE 1.3 MG/DL (0.6-1.3); GFR ESTIMATE (CALCULATED) > 59 mL/min/ (58.99-99999); GLUCOSE 222 mg/dL (70-99); SODIUM 134 MEQ/L (136-147); TOTAL BILIRUBIN 0.5 MG/DL (0.0-1.0); TOTAL PROTEIN 6.5 G/DL (6.4-8.3); UREA NITROGEN (BUN) 25 mg/dL (9-23)
[2017-05-14 08:05] LABS: AST (GOT) 16 IU/L (2-34)
== END 2017-05-14 16:27 | disposition home health service (06) | DRG 638 ==
LOC: EME 08:54 → 5SOUTH 13:08 → EDOF 13:08 → ENRESERV 13:10 → EDOF 13:11 → ENRESERV 13:30 → 5SOUTH 15:12
PROVIDERS: Emergency Medicine; Family Medicine; Internal Medicine
DX: E11.628 Type 2 diabetes mellitus with other skin complications (principal); L03.115 Cellulitis of right lower limb; N17.9 Acute kidney failure, unspecified; E11.65 Type 2 diabetes mellitus with hyperglycemia; E11.40 Type 2 diabetes mellitus with diabetic neuropathy, unspecified; E78.5 Hyperlipidemia, unspecified; E87.1 Hypo-osmolality and hyponatremia; E87.2 Acidosis; E87.5 Hyperkalemia; F32.9 Major depressive disorder, single episode, unspecified; H40.9 Unspecified glaucoma; I10 Essential (primary) hypertension; I25.10 Atherosclerotic heart disease of native coronary artery without angina pectoris; I25.2 Old myocardial infarction; I87.8 Other specified disorders of veins; J44.9 Chronic obstructive pulmonary disease, unspecified; K51.90 Ulcerative colitis, unspecified, without complications; Z79.4 Long term (current) use of insulin; Z86.718 Personal history of other venous thrombosis and embolism; Z87.891 Personal history of nicotine dependence; Z95.1 Presence of aortocoronary bypass graft; Z95.5 Presence of coronary angioplasty implant and graft; B95.2 Enterococcus as the cause of diseases classified elsewhere
CPT/HCPCS: 36415; 71010; 71045; 73630; 80048; 80053; 81003; 82248; 82803; 82948; 83605; 83690; 83930; 84484; 85025; 85027; 85610; 85651; 85730; 86140; 87040; 87070; 87075; 87077; 87186; 87205; 87801; 93005; 99281; 99285; C1752; J0290; J0690; J1644; J1815; J2250; J2270; J2405; J2543; J3010; J3370; J7030; J7050; J7500

== ENCOUNTER 2017-06-26 21:21 | Emergency (ER) | payer BC ==
[~2017-06-26] VITALS: Ht 185.4 cm; Wt 118.1 kg
[~2017-06-26 21:21] MED LIST changes: +BACTRIM,SEPT1 TABLET PO; +CIPROFLOXACIN750 MG PO; +DICLOFENAC SOD100 MG PO; +ENDOCET 5-3251 EACH PO; +RAMIPRIL10 MG PO
[2017-06-27 00:04] VITALS: BP 135/74
== END 2017-06-27 00:05 | disposition home or self-care (01) ==
LOC: EME 21:21
DX: Z45.2 Encounter for adjustment and management of vascular access device (principal); E11.9 Type 2 diabetes mellitus without complications; J44.9 Chronic obstructive pulmonary disease, unspecified; E78.5 Hyperlipidemia, unspecified; G62.9 Polyneuropathy, unspecified; I25.2 Old myocardial infarction; Z79.84 Long term (current) use of oral hypoglycemic drugs; Z87.891 Personal history of nicotine dependence; Z95.1 Presence of aortocoronary bypass graft; Z86.718 Personal history of other venous thrombosis and embolism
CPT/HCPCS: 99281; 99283

== ENCOUNTER 2017-06-27 07:43 | Emergency (ER) | payer BC ==
[~2017-06-27] VITALS: Ht 185.4 cm; Wt 116.2 kg
[2017-06-27 09:49] VITALS: BP 146/60
== END 2017-06-27 09:50 | disposition home or self-care (01) ==
LOC: EME 07:43
DX: Z45.2 Encounter for adjustment and management of vascular access device (principal)
CPT/HCPCS: 99281; 99284